=== PATIENT | male | born 1965 | race Two or more races ===

== ENCOUNTER 2017-01-22 10:51 | Emergency (ER) | payer MEDICAID ==
[2017-01-22 11:09] VITALS: RESP 18; TEMP 97.8
[2017-01-22] MEDS ORDERED: Sodium Chloride 0.9% 1,000 ML IV ONE (11:34)
[2017-01-22] MEDS ORDERED: Sodium Chloride 0.9% 1,000 ML ONE (11:45)
[2017-01-22 11:54] LABS: BASO # 0.1 K/uL (0.0-0.2); EOS # 0.1 K/uL (0.0-0.7); EOS % 1.5 % (0.0-4.0); LYMPH # 2.6 K/uL (1.0-4.3); LYMPH % 36.3 % (20.0-40.0); MEAN CELL VOLUME 95.7 fL (80.0-94.0); MEAN CORPUSCULAR HEMOGLOBIN 32.2 pg (27.0-31.0); MEAN CORPUSCULAR HGB CONC 33.6 g/dL (33.0-37.0); MEAN PLATELET VOLUME 7.2 fL (7.2-11.7); MONO # 1.3 K/uL (0.0-0.8); MONO % 17.5 % (0.0-10.0); NRBC % 0.1 % (0.0-2.0); RED CELL DISTRIBUTION WIDTH 16.6 % (11.5-14.5); WHITE BLOOD COUNT 7.2 K/uL (4.8-10.8)
[2017-01-22 12:01] LABS: CHLORIDE 105 mmol/L (98-107)
[2017-01-22 12:02] LABS: POTASSIUM 3.9 mmol/L (3.6-5.2); SODIUM 143 mmol/L (132-148)
[2017-01-22 12:03] LABS: RBC URINE < 1 /hpf (0-3); URINE BACTERIA RARE (<OCC); URINE BILIRUBIN NEGATIVE (NEGATIVE); URINE BLOOD NEGATIVE (NEGATIVE); URINE COLOR Yellow (YELLOW); URINE GLUCOSE (UA) NORMAL (Normal); URINE KETONE NEGATIVE (NEGATIVE); URINE LEUKOCYTE ESTERASE NEG Leu/uL (Negative); URINE PROTEIN NEGATIVE (NEGATIVE); URINE UROBILINOGEN NORMAL mg/dL (0.2-1.0); WBC URINE < 1 /hpf (0-5)
[2017-01-22 12:03] LABS: GFR AFRICAN-AMERICAN > 60
[2017-01-22 12:04] LABS: ALB/GLOB RATIO 1.1 (1.0-2.1); ALKALINE PHOSPHATASE 92 U/L (38-126); ALT/SGPT 66 U/L (21-72); AST/SGOT 160 U/L (17-59); BILIRUBIN,TOTAL 0.7 mg/dL (0.2-1.3); BLOOD UREA NITROGEN 6 mg/dL (9-20); CARBON DIOXIDE 25 mmol/L (22-30); GLUCOSE,RANDOM 90 mg/dL (75-110); TOTAL PROTEIN 8.4 g/dL (6.3-8.3)
[2017-01-22 12:05] LABS: ALCOHOL SERUM 245 mg/dl (0-10); CALCIUM 8.8 mg/dl (8.6-10.4); CHOLESTEROL 204 mg/dL (0-199)
--- NOTE | 2017-01-22 12:17 | RAD ---
HISTORY: abd pain COMPARISON: None available TECHNIQUE: Chest PA and lateral FINDINGS: LUNGS: Mild left basilar atelectasis. Patchy retrocardiac densities. Please note that chest x-ray has limited sensitivity for the detection of pulmonary masses. PLEURA: No significant pleural effusion identified. No definite pneumothorax . CARDIOVASCULAR: The cardiomediastinal silhouette appears within normal limits of size. OSSEOUS STRUCTURES: No acute osseous abnormality identified. VISUALIZED UPPER ABDOMEN: Unremarkable. OTHER FINDINGS: None. IMPRESSION: Mild left basilar atelectasis. Patchy retrocardiac densities.
--- NOTE | 2017-01-22 12:34 | C.PDOC ---
History Of Present Illness 51 y/o male presents to the ED with complains of left sided rib pain and flank pain for 2 days with associated nausea and vomiting. Patient also reports feeling weak and having loose stools. He states he has been drinking heavily the past 3 days, last drink this morning. Denies trauma or other drug use. Denies chest pain, SOB, abdominal pain, urinary symptoms or any other complaints. Time Seen by Provider: 01/22/17 11:24 Chief Complaint (Nursing): Chest Pain History Per: Patient History/Exam Limitations: no limitations Onset/Duration Of Symptoms: Days Current Symptoms Are (Timing): Still Present Severity: Moderate Quality: "Pain" Modifying Factors: None Alleviating Factors: None Recent travel outside of the [place]: No Past Medical History Reviewed: Historical Data, Nursing Documentation, Vital Signs Vital Signs: Last Vital Signs Temp 97.8 F 01/22/17 11:06 Pulse 78 01/22/17 13:15 Resp 18 01/22/17 13:15 BP 148/95 H 01/22/17 13:15 Pulse Ox 95 01/22/17 13:15 - Medical History PMH: Asthma, HTN Family History: States: Unknown Family Hx - Social History Hx Alcohol Use: Yes Hx Substance Use: No - Immunization History Hx Tetanus Toxoid Vaccination: No Hx Influenza Vaccination: No Hx Pneumococcal Vaccination: No Review Of Systems Except As Marked, All Systems Reviewed And Found Negative. Constitutional: Positive for: Malaise. Negative for: Fever ENT: Negative for: Nose Congestion Cardiovascular: Positive for: Chest Pain (rib left side) Respiratory: Negative for: Shortness of Breath Gastrointestinal: Positive for: Nausea, Vomiting. Negative for: Abdominal Pain Genitourinary: Negative for: Dysuria, Hematuria Musculoskeletal: Positive for: Other (left rib pain and flank pain) Neurological: Negative for: Headache, Dizziness Physical Exam - Physical Exam Appears: Non-toxic, No Acute Distress, Unkempt, Other (alcohol on breath) Skin: Warm, Dry, No Rash Head: Atraumatic, Normacephalic, No Tenderness, No Swelling Eye(s): bilateral: Normal Inspection, EOMI Nose: Normal Oral Mucosa: Moist Neck: Normal ROM, Supple Chest: Symmetrical, Tenderness (left chest wall) Cardiovascular: Rhythm Regular, No Murmur Respiratory: Normal Breath Sounds, No Rales, No Rhonchi, No Wheezing Gastrointestinal/Abdominal: Normal Exam, Soft, No Tenderness Back: Normal Inspection, No Vertebral Tenderness, No Decreased ROM, Paraspinal Tenderness (upper back) Extremity: Bilateral: Atraumatic, No Pedal Edema, Normal Color And Temperature, Normal ROM Neurological/Psych: Oriented x3, Normal Speech Gait: Steady ED Course And Treatment - Laboratory Results Result Diagrams: 01/22/17 11:49 01/22/17 11:49 Lab Interpretation: No Acute Changes ECG: Interpreted By Me ECG Rhythm: Sinus Rhythm ECG Interpretation: No Acute Changes Rate From EC (BPM) O2 Sat by Pulse Oximetry: 97 (room air) Pulse Ox Interpretation: Normal - Radiology CXR: Interpreted by Me, Viewed By Me CXR Interpretation: Yes: No Acute Disease Medical Decision Making Medical Decision Making: Plan: * EKG, CXR * labs * UA * aspirin, toradol, zofran * Iv fluids progress: Chest XRay read by radiologist: Mild left basilar atelectasis. Patchy retrocardiac densities. EKG shows normal sinus with no ST-T changes Labs reviewed and patient has serum alcohol 245, negative troponin and borderline elevated cholesterol. Patient continued to complain of back pain, Toradol IV given. Patient started feeling better after Toradol and was then asking for lunch. Based on negative cardiac enzymes after 2 days chest pain, no acute changes on EKG or cardiac monitoring have low clinical suspicion for ACS. Patient remained well and in no acute distress, chest pain resolved during ED evaluation. Patient advised to follow up in the clinic and with waterproof bag sewer. Family at bedside and will take patient home, comfortable with plan for discharge. Disposition Counseled Patient/Family Regarding: Studies Performed, Diagnosis, Need For Followup, Rx Given - Disposition Referrals: Santiago Olvera MD [Medical Doctor] - Disposition: HOME/ ROUTINE Disposition Time: 13:15 Condition: STABLE Additional Instructions: Thapa EKG, Labs y la radiografa de trax fueron normales. Por favor, siga en la clnica o mdico de cabecera en pocos cavazos para rebecca evaluacin posterior Usted puede manuela aspirina por cualquier dolor que tenga Regrese al servicio de urgencias en cualquier momento si los sntomas persisten o empeoran. Prescriptions: Ibuprofen [Motrin] 600 mg PO Q8 #30 tab Ondansetron ODT [Zofran ODT] 1 odt PO BID PRN #6 odt PRN Reason: Nausea/Vomiting Instructions: Chest Pain (ED), Abuse of Alcohol (ED) Print Language: YORUBA - POA Present On Arrival: None - Clinical Impression Clinical Impression: Chest wall pain, Musculoskeletal pain, Alcohol abuse - PA / CONTACT LENS ASSISTANT / Resident Statement MD/DO has reviewed & agrees with the documentation as recorded. - Scribe Statement The provider has reviewed the documentation as recorded by the Scribjudy Shultz All medical record entries made by the Shima were at my direction and personally dictated by me. I have reviewed the chart and agree that the record accurately reflects my personal performance of the history, physical exam, medical decision making, and the department course for this patient. I have also personally directed, reviewed, and agree with the discharge instructions and disposition.
[2017-01-22 13:16] VITALS: BP 148/95; PULSE 78
[2017-01-23 07:47] VITALS: O2SAT 97
--- NOTE | 2017-01-28 07:47 | CARD ---
APPROVED REPORT EKG Measurement Heart [id number] <Conclusion> Normal sinus rhythm Normal ECG
== END 2017-01-22 13:28 | disposition home or self-care (01) ==
LOC: C.ER 10:51
DX: M54.5 Low back pain (principal); R07.89 Other chest pain; F10.10 Alcohol abuse, uncomplicated; Y90.8 Blood alcohol level of 240 mg/100 ml or more
CPT/HCPCS: 71020; 80053; 80061; 80320; 80324; 80345; 80346; 80349; 80353; 80358; 80361; 81001; 83690; 83992; 84484; 85025; 85610; 85730; 93005; 96361; 96374; 96375; 99285; J1885; J2405; J7040

== ENCOUNTER 2017-01-24 19:30 | Emergency (ER) | payer MEDICAID ==
[2017-01-24 20:32] LABS: BASO # 0.1 K/uL (0.0-0.2); BASO % 0.6 % (0.0-2.0); EOS # 0.1 K/uL (0.0-0.7); EOS % 1.6 % (0.0-4.0); HEMATOCRIT 37.6 % (35.0-51.0); LYMPH # 3.3 K/uL (1.0-4.3); LYMPH % 38.3 % (20.0-40.0); MEAN CELL VOLUME 95.1 fL (80.0-94.0); MEAN CORPUSCULAR HEMOGLOBIN 32.2 pg (27.0-31.0); MEAN CORPUSCULAR HGB CONC 33.8 g/dL (33.0-37.0); MEAN PLATELET VOLUME 7.2 fL (7.2-11.7); MONO # 1.3 K/uL (0.0-0.8); MONO % 15.5 % (0.0-10.0); RED CELL DISTRIBUTION WIDTH 16.2 % (11.5-14.5); WHITE BLOOD COUNT 8.6 K/uL (4.8-10.8)
[2017-01-24 20:37] LABS: URINE BACTERIA RARE (<OCC); URINE BILIRUBIN NEGATIVE (NEGATIVE); URINE BLOOD NEGATIVE (NEGATIVE); URINE COLOR Colorless (YELLOW); URINE GLUCOSE (UA) NORMAL (Normal); URINE KETONE NEGATIVE (NEGATIVE); URINE LEUKOCYTE ESTERASE NEG Leu/uL (Negative); URINE PROTEIN NEGATIVE (NEGATIVE); URINE UROBILINOGEN NORMAL mg/dL (0.2-1.0)
[2017-01-24 20:41] LABS: CHLORIDE 100 mmol/L (98-107); SODIUM 139 mmol/L (132-148)
[2017-01-24 20:42] LABS: POTASSIUM 3.6 mmol/L (3.6-5.2)
[2017-01-24 20:44] LABS: ALB/GLOB RATIO 1.2 (1.0-2.1); ALKALINE PHOSPHATASE 91 U/L (38-126); AST/SGOT 112 U/L (17-59); BILIRUBIN,TOTAL < 0.1 mg/dL (0.2-1.3); BLOOD UREA NITROGEN 9 mg/dL (9-20); CARBON DIOXIDE 24 mmol/L (22-30); GFR AFRICAN-AMERICAN > 60; GLUCOSE,RANDOM 89 mg/dL (75-110); TOTAL PROTEIN 8.2 g/dL (6.3-8.3)
[2017-01-24 20:45] LABS: ALT/SGPT 59 U/L (21-72); CALCIUM 8.7 mg/dl (8.6-10.4)
--- NOTE | 2017-01-24 21:34 | C.PDOC ---
History Of Present Illness 51 year old male presents to the ER with a complaint of left rib/LUQ pain for the past 2 days. Patient was seen 2 days ago in the ER, had blood work and a CXR done, was discharged home with Rxs for motrin/zofran. Patient admits to ETOH use, but denies any known falls/injury, chest pain, SOB, nausea, vomiting, diarrhea, or fever. Time Seen by Provider: 01/24/17 20:00 Chief Complaint (Nursing): Abdominal Pain History Per: Patient History/Exam Limitations: no limitations Onset/Duration Of Symptoms: Days (2) Current Symptoms Are (Timing): Still Present Context: Other (ETOH) Severity: Moderate Location Of Pain/Discomfort: LUQ, Other (Left rib) Radiation Of Pain To:: None Associated Symptoms: denies: Fever, Nausea, Vomiting, Diarrhea, Chest Pain Exacerbating Factors: Movement Alleviating Factors: None Past Medical History Reviewed: Historical Data, Nursing Documentation, Vital Signs Vital Signs: Last Vital Signs Temp 98 F 01/24/17 22:06 Pulse 69 01/24/17 22:06 Resp 18 01/24/17 22:06 BP 113/70 01/24/17 22:06 Pulse Ox 98 01/24/17 22:06 - Medical History PMH: Asthma, HTN Surgical History: No Surg Hx Family History: States: No Known Family Hx - Social History Hx Alcohol Use: Yes Hx Substance Use: No - Immunization History Hx Tetanus Toxoid Vaccination: No Hx Influenza Vaccination: No Hx Pneumococcal Vaccination: No Review Of Systems Except As Marked, All Systems Reviewed And Found Negative. Constitutional: Negative for: Fever, Chills Cardiovascular: Negative for: Chest Pain, Palpitations Respiratory: Negative for: Cough, Shortness of Breath Gastrointestinal: Positive for: Abdominal Pain (LUQ). Negative for: Nausea, Vomiting, Diarrhea Musculoskeletal: Positive for: Other (Left Rib Pain) Physical Exam - Physical Exam Appears: Non-toxic, Other (Mild to moderate pain) Skin: Normal Color, Warm, Dry Head: Atraumatic, Normacephalic Eye(s): bilateral: Normal Inspection Oral Mucosa: Moist Neck: Normal, Normal ROM, No Midline Cervical Tenderness, No Paracervical Tenderness, No Step Off Deformity, Supple Chest: Symmetrical, Tenderness (To palpation, left lateral rib (approx rib 6-7)) , Ecchymosis (Left lateral rib area) Cardiovascular: Rhythm Regular, No Friction Rub Respiratory: Normal Breath Sounds, No Rales, No Rhonchi, No Wheezing Gastrointestinal/Abdominal: Bowel Sounds, Soft, Tenderness (mild LUQ), No Guarding, No Rebound Extremity: Normal ROM, Other (scattered ecchymosis of extremities) Extremity: Bilateral: Normal Color And Temperature, Normal ROM Pulses: Left Dorsalis Pedis: Normal, Right Dorsalis Pedis: Normal Neurological/Psych: Oriented x3 Gait: Steady ED Course And Treatment - Laboratory Results Result Diagrams: 01/24/17 20:24 01/24/17 20:24 O2 Sat by Pulse Oximetry: 96 (Room air) Pulse Ox Interpretation: Normal - CT Scan/US ct chest/abd/pelvis Other Rad Studies (CT/US): Read By Radiologist, Radiology Report Reviewed CT/US Interpretation: Name: TIMA ZUNIGA Age: 51Years M Date: 01/24/2017. SSN: [id number] : 1965. Study: CT ABDOMEN/PELVIS WO Requesting Physician: LORETA GARCIA. Images: 0. Add l Studies: [id number] - CT CHEST WO (0). Provided Clinical History: persist left chest/luq pain,etohabuse, poss trauma. CONFIDENTIALITY STATEMENT. This transmission is confidential and is intended to be a privileged communication. It is intended only for the use of the addressee. Access to this. message by anyone else is unauthorized. If you are not the intended recipient, any disclosure, copying, distribution or any action taken, or omitted to. be taken in reliance on it is prohibited and may be unlawful. If you received this communication in error, please notify us by telephone, so that return. of this document to us can be arranged. Page 1 of 4. EXAM: CT Chest Without Intravenous Contrast. CLINICAL HISTORY: 51 years old, male; Pain and signs and symptoms; Other: Eto abuse; Abdominal pain; Flank; Left. upper quadrant (luq); Other: Luq pain; Chest pain and chest wall pain; Additional info: Persist left. chest/luq pain, etohabuse, poss trauma. TECHNIQUE: Axial computed tomography images of the chest without intravenous contrast. This CT exam was. performed using one or more of the following dose reduction techniques: automated exposure. control, adjustment of the mA and/or kV according to patient size, and/or use of iterative. reconstruction technique. Coronal and sagittal reformatted images were created and reviewed. COMPARISON: There are no prior studies for comparison. FINDINGS: Artifacts: Motion artifact degrades image quality. Lungs and pleural spaces: Trachea and main bronchi are patent.There is no pneumothorax. There. is no focal consolidation. There is dependent atelectasis. There is linear scarring at the lung bases. left greater than right. There is subsegmental atelectasis/ scarring in the middle lobe. There are no. effusions. Heart and vasculature: The heart is mildly enlarged. There is no pericardial effusion.There are. vascular calcifications.Aorta and main pulmonary artery are normal in caliber. [facility]. [facility]. Final Radiology Report [id number]. Name: TIMA ZUNIGA Age: 51Years M Date: 01/24/2017. : 1965. Study: CT ABDOMEN/PELVIS WO Requesting Physician: LORETA GARCIA. Images: 0. Addl Studies: [id number] - CT CHEST WO (0). Provided Clinical History: persist left chest /luq pain,etohabuse, poss trauma. CONFIDENTIALITY STATEMENT. This transmission is confidential and is intended to be a privileged communication. It is intended only for the use of the addressee. Access to this. message by anyone else is unauthorized. If you are not the intended recipient, any disclosure, copying, distribution or any action taken, or omitted to. be taken in reliance on it is prohibited and may be unlawful. If you received this communication in error, please notify us by telephone, so that return. of this document to us can be arranged. Page 2 of 4. Mediastinum: Esophagus is unremarkable. There are shotty mediastinal nodes.Elise are not. optimally evaluated without contrast material. Thyroid: Thyroid is not optimally demonstrated. Bones/joints: There are degenerative changes in the spine. There is an acute displaced fracture of. the left seventh rib. There is adjacent soft tissue swelling and edema. There is an old healed. posterior left 10th rib fracture. No acute fractures are seen on the right. Soft tissues: See above. Upper abdomen: Referred to following report for abdominal findings. IMPRESSION: No acute intrathoracic injury; acute left seventh rib fracture with adjacent soft tissue swelling/bruising. . EXAM: CT Abdomen and Pelvis Without Intravenous Contrast. CLINICAL HISTORY: 51 years old, male; Pain and signs and symptoms; Other: Eto abuse; Abdominal pain; Flank; Left. upper quadrant (luq); Other: Luq pain; Chest pain and chest wall pain; Additional info: Persist left. chest/luq pain, etohabuse, poss trauma. TECHNIQUE: Axial computed tomography images of the abdomen and pelvis without intravenous contrast. This. CT exam was performed using one or more of the following dose reduction techniques: automated. exposure control, adjustment of the mA and/or kV according to patient size, and/ or use of iterative. reconstruction technique. [facility]. [facility]. Final Radiology Report [id number]. Name: TIMA ZUNIGA Age : 51Years M Date: 01/24/2017. SSN: [id number] : 1965. Study: CT ABDOMEN/PELVIS WO Requesting Physician: LORETA GARCIA. Images: 0. Addl Studies: [id number] - CT CHEST WO (0). Provided Clinical History: persist left chest/luq pain,etohabuse, poss trauma. CONFIDENTIALITY STATEMENT. This transmission is confidential and is intended to be a privileged communication. It is intended only for the use of the addressee. Access to this. message by anyone else is unauthorized. If you are not the intended recipient, any disclosure, copying, distribution or any action taken, or omitted to. be taken in reliance on it is prohibited and may be unlawful. If you received this communication in error, please notify us by telephone, so that return. of this document to us can be arranged. Page 3 of 4. Coronal and sagittal reformatted images were created and reviewed. EXAM DATE/TIME: 01/24/2017 8:13 PM. COMPARISON: There are no prior studies for comparison. FINDINGS: Artifact: Motion artifact degrades image quality. Lower thorax: Refer to prior report for chest findings. ABDOMEN: Liver: Fatty liver, no acute solid visceral. Gallbladder and bile ducts: unremarkable. Pancreas: unremarkable. Spleen: unremarkable. Adrenals: unremarkable. Kidneys and ureters: There is increased attenuation to the renal periods bilaterally. There are no. renal masses. There is no pelvocaliectasis or ureterectasis. Stomach and bowel: Stomach is almost empty. Rotation is normal. Small bowel is mildly distended. with fluid and air. There is no obstruction. Terminal ileum is unremarkable. Appendix is. unremarkable. Colon is incompletely distended which limits evaluation. Appendix: See stomach and bowel. PELVIS: Bladder: unremarkable. [facility]. [facility] Radiology [facility]. Final Radiology Report [id number]. Name: TIMA ZUNIGA Age: 51Years M Date: 01/24/2017. SSN: [id number] : 1965. Study: CT ABDOMEN/PELVIS WO Requesting Physician: LORETA GARCIA. Images: 0. Addl Studies: [id number] - CT CHEST WO (0). Provided Clinical History: persist left chest/luq pain,etohabuse, poss trauma. CONFIDENTIALITY STATEMENT. This transmission is confidential and is intended to be a privileged communication. It is intended only for the use of the addressee. Access to this. message by anyone else is unauthorized. If you are not the intended recipient, any disclosure, copying, distribution or any action taken, or omitted to. be taken in reliance on it is prohibited and may be unlawful. If you received this communication in error, please notify us by telephone, so that return. of this document to us can be arranged. Page 4 of 4. Reproductive: Seminal vesicles and prostate are unremarkable. ABDOMEN and PELVIS: Intraperitoneal space: There is no significant fluid.There is no free air. Bones/joints: There are degenerative changes in the osseus structures. There is a left seventh rib. fracture. Soft tissues: unremarkable. Vasculature: There are multiple phleboliths. There are scattered calcifications in the aorta. There. are small collateral vessels in the left flank. Lymph nodes: There is shotty adenopathy. IMPRESSION: Left seventh rib fracture; no acute solid visceral or bowel injury. Thank you for allowing us to participate in the care of your patient. Dictated and Authenticated by: Tamia Martinez MD. 01/24/2017 9:38 PM Eastern Time ([place] & [place]) Progress Note: Blood work and CT of abd/chest/pelvis w/o contrast ordered and reviewed. Patient given PO tylenol for pain. Reevaluation Time: 22:00 Reassessment Condition: Improved (Patient reassessed, is resting comfortably, pain has improved. CT scan shows nondisplaced left 7th rib fx. Blood work, UA , UDS unremarkable. He was given Rx for Naprosyn, and instructed to follow up with PMD in 1-2 days. He is currently AAOx3, ambulating normally in the ED, and is clinically sober. He understands he should return to ED if symptoms worsen.) Disposition Counseled Patient/Family Regarding: Studies Performed, Diagnosis, Need For Followup, Rx Given - Disposition Referrals: Moises Garza MD [Medical Doctor] - Disposition: HOME/ ROUTINE Disposition Time: 22:00 Condition: STABLE Additional Instructions: FOLLOW UP WITH YOUR DOCTOR/CLINIC IN 1-2 DAYS RETURN TO ER IF SYMPTOMS WORSEN USE MEDICATION NEEDED Prescriptions: Naproxen [Naprosyn] 1 tab PO BID PRN #25 tab PRN Reason: Pain Instructions: Rib Fracture (ED) Print Language: TRINIDADIAN - Clinical Impression Clinical Impression: Left rib fracture - Scribe Statement The provider has reviewed the documentation as recorded by the Scribe Salty Mladonado All medical record entries made by the Scribe were at my direction and personally dictated by me. I have reviewed the chart and agree that the record accurately reflects my personal performance of the history, physical exam, medical decision making, and the department course for this patient. I have also personally directed, reviewed, and agree with the discharge instructions and disposition.
--- NOTE | 2017-01-24 21:39 | CT ---
EXAM: CT Chest Without Intravenous Contrast CLINICAL HISTORY: 51 years old, male; Pain and signs and symptoms; Other: Eto abuse; Abdominal pain; Flank; Left upper quadrant (luq); Other: Luq pain; Chest pain and chest wall pain; Additional info: Persist left chest/luq pain, etohabuse, poss trauma TECHNIQUE: Axial computed tomography images of the chest without intravenous contrast. This CT exam was performed using one or more of the following dose reduction techniques: automated exposure control, adjustment of the mA and/or kV according to patient size, and/or use of iterative reconstruction technique. Coronal and sagittal reformatted images were created and reviewed. COMPARISON: There are no prior studies for comparison. FINDINGS: Artifacts: Motion artifact degrades image quality. Lungs and pleural spaces: Trachea and main bronchi are patent.There is no pneumothorax. There is no focal consolidation. There is dependent atelectasis. There is linear scarring at the lung bases left greater than right. There is subsegmental atelectasis/scarring in the middle lobe. There are no effusions. Heart and vasculature: The heart is mildly enlarged. There is no pericardial effusion.There are vascular calcifications.Aorta and main pulmonary artery are normal in caliber. Mediastinum: Esophagus is unremarkable. There are shotty mediastinal nodes.Elise are not optimally evaluated without contrast material. Thyroid: Thyroid is not optimally demonstrated. Bones/joints: There are degenerative changes in the spine. There is an acute displaced fracture of the left seventh rib. There is adjacent soft tissue swelling and edema. There is an old healed posterior left 10th rib fracture. No acute fractures are seen on the right. Soft tissues: See above. Upper abdomen: Referred to following report for abdominal findings IMPRESSION: No acute intrathoracic injury; acute left seventh rib fracture with adjacent soft tissue swelling/bruising EXAM: CT Abdomen and Pelvis Without Intravenous Contrast CLINICAL HISTORY: 51 years old, male; Pain and signs and symptoms; Other: Eto abuse; Abdominal pain; Flank; Left upper quadrant (luq); Other: Luq pain; Chest pain and chest wall pain; Additional info: Persist left chest/luq pain, etohabuse, poss trauma TECHNIQUE: Axial computed tomography images of the abdomen and pelvis without intravenous contrast. This CT exam was performed using one or more of the following dose reduction techniques: automated exposure control, adjustment of the mA and/or kV according to patient size, and/or use of iterative reconstruction technique. Coronal and sagittal reformatted images were created and reviewed. EXAM DATE/TIME: 01/24/2017 8:13 PM COMPARISON: There are no prior studies for comparison. FINDINGS: Artifact: Motion artifact degrades image quality. Lower thorax: Refer to prior report for chest findings ABDOMEN: Liver: Fatty liver, no acute solid visceral Gallbladder and bile ducts: unremarkable Pancreas: unremarkable Spleen: unremarkable Adrenals: unremarkable Kidneys and ureters: There is increased attenuation to the renal periods bilaterally. There are no renal masses. There is no pelvocaliectasis or ureterectasis. Stomach and bowel: Stomach is almost empty. Rotation is normal. Small bowel is mildly distended with fluid and air. There is no obstruction. Terminal ileum is unremarkable. Appendix is unremarkable. Colon is incompletely distended which limits evaluation. Appendix: See stomach and bowel PELVIS: Bladder: unremarkable Reproductive: Seminal vesicles and prostate are unremarkable. ABDOMEN and PELVIS: Intraperitoneal space: There is no significant fluid.There is no free air. Bones/joints: There are degenerative changes in the osseus structures. There is a left seventh rib fracture. Soft tissues: unremarkable Vasculature: There are multiple phleboliths. There are scattered calcifications in the aorta. There are small collateral vessels in the left flank. Lymph nodes: There is shotty adenopathy. IMPRESSION: Left seventh rib fracture; no acute solid visceral or bowel injury
[2017-01-24 22:07] VITALS: BP 113/70; PULSE 69; RESP 18; TEMP 98
[2017-01-25 23:42] VITALS: O2SAT 96
== END 2017-01-24 22:20 | disposition home or self-care (01) ==
LOC: C.ER 19:30
DX: S22.32XA Fracture of one rib, left side, initial encounter for closed fracture (principal); X58.XXXA Exposure to other specified factors, initial encounter; Y92.9 Unspecified place or not applicable